=== PATIENT | male | born 1970 | race Caucasian/White ===

== ENCOUNTER 2024-11-09 15:44 | Emergency (ER) | payer OTHER, SELFPAY ==
[2024-11-09 15:53] VITALS: BP 129/103
--- NOTE | 2024-11-09 19:11 | ED.GENMED ---
History of Present Illness
General
Chief Complaint: Musculo-Skeletal Complaint
Source: patient
Exam Limitations: none
Time Seen by Provider: 11/09/24 18:53
History of Present Illness
History of Present Illness:
Nontraumatic pain and swelling to the left knee. Started 3 to 4 days ago. Much worse today. No trauma. No fever chills no rash. No other joints with issues. Patient is a [place] and is on his knees frequently.
Past History
Past History
ED Past Medical History: None
Phy Exam
Physical Exam
Physical Exam:
General: Nontoxic appearing in no distress
Skin: Warm and dry, no rash
Neuro: Alert, nontoxic, grossly nonfocal
Psychiatric: Good eye contact and appropriate
Musculoskeletal: Left leg specifically left knee grossly normal with some mild swelling over the left patella. No drainage no significant erythema. Thigh normal calf normal good distal pulses and color. No pain with joint motion. Some pain with
straight leg raising however. Tenderness over the patella with bogginess. However no joint effusion
Course
Orders/Labs/Results
Orders:
Orders
11/09/24 17:03
Knee, Left 4 or More Views [CR Knee - Left 4 Or More View*] Urgent
Comment:
Reason For Exam: injry
11/09/24 19:11
Dada Wrap Left-Treatment ONCE
Doxycycline [Vibramycin] 100 mg PO NOW STA
Vital Signs
Initial and Last Documented VS:
Initial Vital Signs
Temp Pulse Resp BP Pulse Ox
98.5 F 77 18 129/103 99
11/09/24 15:53 11/09/24 15:53 11/09/24 15:53 11/09/24 15:53 11/09/24 15:53
Last Documented Vital Signs
Temp Pulse Resp BP Pulse Ox
98.1 F 68 18 139/85 99
11/09/24 19:16 11/09/24 19:16 11/09/24 19:16 11/09/24 19:16 11/09/24 19:13
MDM/Problems Addressed
Differential Diagnosis Includes:
Symptoms consistent with a patellar bursitis. I do not feel this involves the joint. No suspicion for septic arthritis. Or general monoarticular arthritis. All consistent with a bursitis. Doubt infectious although there is minimal warmth and
tenderness. Will cover with antibiotics. No pressure to the area and orthopedic follow-up.
*Radiology
Radiology exam reviewed: preliminary read by ED provider (Negative)
*Pulse Oximetry
SaO2: 99
Oxygen Mode of Delivery: Room air
Patient hypoxic: no
*Critical Care Note
Total Time (30-74mins, 75-104mins- exclusive of procedures): Not Applicable
ED Attending Note
-
Portions of this chart may have been created with voice recognition software.� Occasional wrong word or��sound alike� substitutions may have occurred due to the inherent limitations of voice recognition software.
Discharge Plan
Departure
Patient Disposition: Home (Routine Discharge)
Date of Disposition: 11/09/24
Time of Disposition: 19:13
Patient with high blood pressure during this ER visit?: Yes
Discharge Problem:
Left patellar bursitis
Instructions: Prepatellar Bursitis Exercises, Bursitis - ED (DC), BLOOD PRESSURE
Prescriptions:
New
doxycycline hyclate 100 mg capsule
100 mg PO BID 10 Days Qty: 20 0RF
Activity Restrictions/Additional Instructions:
Advil Motrin for pain. You could also add Tylenol
Call orthopedics for follow-up
Antibiotics as directed
Return sooner with increased pain increased swelling general joint swelling fever or any other concerning symptoms
Your blood pressure was elevated here and should be rechecked
Interventions
Interventions:
*Risk Screen - Suicide Last Done: 11/09/24 15:53
*General Assessment Last Done: 11/09/24 19:13
*Neglect/Abuse Screening Last Done: 11/09/24 19:13
*ED- Fall Risk Assessment Last Done: 11/09/24 19:13
*ED COVID-19 Vaccine History Last Done: 11/09/24 19:13
*Nursing Disposition Last Done: 11/09/24 19:28
ED-Musculoskeletal Assessment Last Done: 11/09/24 19:13
Discharge Date and Time
Discharge Date/Time: 11/09/24 19:29
Print Language: SWEDISH
[2024-11-09 19:16] VITALS: BP 139/85
[2024-11-09] MEDS: VIBRAMYCIN 100 MG PO (19:21)
== END 2024-11-09 19:29 | disposition home or self-care (01) ==
LOC: EMR 15:44
PROVIDERS: EMERGENCY PHYSICIAN Emergency Medicine
DX: M70.42 Prepatellar bursitis, left knee (principal); R22.42 Localized swelling, mass and lump, left lower limb
CPT/HCPCS: 99283; 73564